=== PATIENT | female | born 1945 | race Caucasian/White ===

== ENCOUNTER → 2017-03-30 | Outpatient (CLI) | payer OTHER | LOC: M WHC 08:12 | DX: Z12.31 Encounter for screening mammogram for malignant neoplasm of breast (principal); Z80.3 Family history of malignant neoplasm of breast; Z78.0 Asymptomatic menopausal state | CPT/HCPCS: 77067 ==

== ENCOUNTER → 2017-11-02 | Outpatient (REF) | payer OTHER ==
[2017-11-02 16:54] LABS: ALBUMIN 3.8 GM/DL (3.2-5.2); ALKALINE PHOSPHATASE 59 U/L (45-117); ALT/SGPT 22 U/L (12-78); ANION GAP 5 MEQ/L (8-16); AST/SGOT 17 U/L (7-37); BILIRUBIN,TOTAL 0.3 MG/DL (0.2-1.0); BLOOD UREA NITROGEN 18 MG/DL (7-18); CALCIUM LEVEL 9.2 MG/DL (8.8-10.2); CARBON DIOXIDE LEVEL 29 MEQ/L (21-32); CHLORIDE LEVEL 108 MEQ/L (98-107); CHOLESTEROL LEVEL 235 MG/DL (<200); CHOLESTEROL RISK RATIO 2.865 (<5); CREATININE FOR GFR 0.71 MG/DL (0.55-1.30); GLOMERULAR FILTRATION RATE > 60.0 (>39); GLUCOSE, FASTING 73 MG/DL (70-100); HDL CHOLESTEROL 82 MG/DL (>40); LDL CHOLESTEROL 126 MG/DL (<100); NON-HDL-C 153 MG/DL; POTASSIUM SERUM 4.8 MEQ/L (3.5-5.1); SODIUM LEVEL 142 MEQ/L (136-145); TRIGLYCERIDES LEVEL 134 MG/DL (<150)
[2017-11-02 17:03] LABS: TOTAL 25(OH) VITAMIN D 43.9 NG/ML (30.0-100.0)
[2017-11-02 17:04] LABS: ALBUMIN/GLOBULIN RATIO 1.19 (1.00-1.93)
== END ==
LOC: M SFHCPLAZ 14:56
DX: Z00.00 Encounter for general adult medical examination without abnormal findings (principal); I10 Essential (primary) hypertension; E78.00 Pure hypercholesterolemia, unspecified; E55.9 Vitamin D deficiency, unspecified

== ENCOUNTER 2018-04-27 08:29 | Day surgery (SDC) | payer OTHER ==
[~2018-04-27] VITALS: Ht 162.6 cm; Wt 51.7 kg
[~2018-04-27 08:29] MED LIST: ACETAMINOPHEN 325 MG TAB PO PRN; ASPI1TAB PO; BSS with VANC/TOB/EPI for EYE CASES IR ONE; CYCLOPENTOLATE 2% OPHTH SOLN 2ML BTL OD ONE; DULE100A IN; HEALON DUET PRO(HEALON 10MG/ML 0.55ML & HEALON ENDOCOAT 30MG/ML 0.85ML) As Ordered ONE; LIDOCAINE 1% SDV 5 ML VIAL As Ordered ONE; LIDOCAINE 3.5 % 1ML OPHTH TOPICAL GEL OU ONE; LISI-538 PO; MIDAZOLAM INJ 2 MG/2 ML VIAL (J2250) As Ordered ONE; MOXIFLOXACIN IN BSS 0.25MG/0.25ML INTRACAMERAL INJ (OR EYE ONLY)(J2280) As Ordered ONE; OFLOXACIN 0.3 % (OCUFLOX) OPTH SOL 5ML OD ONE; PHENYLEPHRINE 2.5% OPHTH SOL 2ML OD ONE; PHENYLEPHRINE HCL 10 % OPHTH. SOL 5ML OD PRN; POVIDONE-IODINE 5% OPHTH PREP SOL 30ML As Ordered ONE; SING10TA32 PO; SUMA25TA3 PO; TRIAMCINOLONE PRES FR 40 MG/ML 1ML(TRIESENCE)(OR EYE ONLY)(J3300 PER 1MG) As Ordered ONE; TROPICAMIDE 1% OPHTH SOLN 2ML OD ONE; VITA500046 PO
[2018-04-27] MEDS ORDERED: TRIMETHOBENZAMIDE 300 MG CAP PO PRN (10:30)
[2018-04-27] MEDS ORDERED: AcetaZOLAMIDE 500 MG ER CAP PO ONE (10:30)
[2018-04-27 10:40] VITALS: BP 102/60
--- NOTE | 2018-04-27 10:43 | RO ---
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 PROCEDURE: Femtosecond laser with phacoemulsification and intraocular lens implantation with ORA and placement of a 7 mm Malyugin ring. SURGEON: Prasanna Samano MD TOBACCO SCRAP SIFTER: None. ANESTHESIA: Local IV standby. FINDINGS: Cataract right eye. COMPLICATIONS: None. DESCRIPTION OF PROCEDURE: The patient was brought to the operating room and laid in supine position. A lid speculum was placed, and patient was brought under the femtosecond laser. After the satisfactory placement of the patient interface, primary incision, secondary incision, and arcuate incisions with lens fragmentation was done without any complication per plan. The patients interface was then removed and lid speculum removed. Patient was placed under the microscope. The eye was prepped and draped in a sterile fashion for ophthalmic surgery. Lid speculum was placed. The secondary incision was opened, and EndoCoat was injected into the anterior chamber. The temporal clear corneal incision was then opened and capsulorrhexis removed, followed by hydrodissection. This was followed by phacoemulsification of the lens within the capsular bag. Cortical material was then aspirated, and Healon was injected into the capsular bag. Intraocular lens was then placed. Excess Healon was aspirated. Wound was hydrated. The lid speculum was removed, and patient was returned to the recovery room in stable condition. Addendum: After the EndoCoat was injected into the anterior chamber, it was noted that the patient's pupil had constricted. At this point, Healon was placed underneath the iris to separate the iris from the capsulorrhexis and Malyugin ring 7 mm inserted. This ring was removed after the placement of the intraocular lens. Prior to the intraocular lens placement, intraocular pressure was checked and multiple ORA calculations were reviewed and intraocular lens power chosen.
== END 2018-04-27 11:05 | disposition home or self-care (01) ==
LOC: M SDC 08:29
PROVIDERS: ATTEND Ophthalmology
DX: H26.9 Unspecified cataract (principal); H57.03 Miosis; I10 Essential (primary) hypertension; Z79.82 Long term (current) use of aspirin; Z79.899 Other long term (current) drug therapy
CPT/HCPCS: 66982; 92015; J2250; J2280; J3300

== ENCOUNTER 2018-05-18 10:24 | Day surgery (SDC) | payer OTHER ==
[~2018-05-18] VITALS: Ht 162.6 cm; Wt 52.2 kg
[~2018-05-18 10:24] MED LIST changes: -CYCLOPENTOLATE 2% OPHTH SOLN 2ML BTL OD ONE; +CYCLOPENTOLATE 2% OPHTH SOLN 2ML BTL OS ONE; -MIDAZOLAM INJ 2 MG/2 ML VIAL (J2250) As Ordered ONE; -OFLOXACIN 0.3 % (OCUFLOX) OPTH SOL 5ML OD ONE; +OFLOXACIN 0.3 % (OCUFLOX) OPTH SOL 5ML OS ONE; -PHENYLEPHRINE 2.5% OPHTH SOL 2ML OD ONE; +PHENYLEPHRINE 2.5% OPHTH SOL 2ML OS ONE; -PHENYLEPHRINE HCL 10 % OPHTH. SOL 5ML OD PRN; +PHENYLEPHRINE HCL 10 % OPHTH. SOL 5ML OS PRN; -TROPICAMIDE 1% OPHTH SOLN 2ML OD ONE; +TROPICAMIDE 1% OPHTH SOLN 2ML OS ONE
[2018-05-18] MEDS ORDERED: MIDAZOLAM INJ 2 MG/2 ML VIAL (J2250) As Ordered ONE (12:36)
[2018-05-18] MEDS ORDERED: fentaNYL 100 MCG/2 ML INJECTION (J3010) As Ordered ONE (12:37)
[2018-05-18] MEDS ORDERED: TRIAMCINOLONE PRES FR 40 MG/ML 1ML(TRIESENCE)(OR EYE ONLY)(J3300 PER 1MG) As Ordered ONE (12:56)
[2018-05-18 13:45] VITALS: BP 110/65
[2018-05-18] MEDS ORDERED: ONDANSETRON 4MG/2ML VIAL (J2405) IV PRN (13:45)
[2018-05-18] MEDS ORDERED: ACETAMINOPHEN TAB 650MG DOSE (2X325MG) PO PRN (13:45)
[2018-05-18] MEDS ORDERED: AcetaZOLAMIDE 500 MG ER CAP PO ONE (13:45)
[2018-05-18] MEDS ORDERED: TRIMETHOBENZAMIDE 300 MG CAP PO PRN (13:45)
--- NOTE | 2018-05-19 09:50 | RO ---
DATE OF PROCEDURE: 05/18/2018 PREPROCEDURE DIAGNOSIS: Cataract of left eye. POSTPROCEDURE DIAGNOSIS: Cataract of left eye. PROCEDURE: Femtosecond laser and phacoemulsification of the intraocular lens with lens implantation left eye with the help os ORA. Power was [id number], 20.5 diopter. SURGEON: Prasanna Samano MD CASTINGS TRIMMER: None. ANESTHESIA: Local IV standby. FINDINGS: Cataract of right eye. COMPLICATIONS: None. DESCRIPTION OF PROCEDURE: The patient was brought to the operating room and laid in supine position. A lid speculum was placed, and patient was brought under the femtosecond laser. After the satisfactory placement of the patient interface, primary incision, secondary incision, and arcuate incisions with lens fragmentation was done without any complication per plan. The patients interface was then removed and lid speculum removed. Patient was placed under the microscope. The eye was prepped and draped in a sterile fashion for ophthalmic surgery. Lid speculum was placed. The secondary incision was opened, and EndoCoat was injected into the anterior chamber. The temporal clear corneal incision was then opened and capsulorrhexis removed, followed by hydrodissection. This was followed by phacoemulsification of the lens within the capsular bag. Cortical material was then aspirated, and Healon was injected into the capsular bag. Intraocular lens was then placed. Excess Healon was aspirated. Wound was hydrated. The lid speculum was removed, and patient was returned to the recovery room in stable condition. ADDENDUM: After removal of the cortical material, Healon was placed in the anterior chamber and the capsular bag and pressure was checked following which multiple ORA images were taken. Calculation was reviewed and intraocular lens power chosen.
== END 2018-05-18 14:00 | disposition home or self-care (01) ==
LOC: M SDC 10:24
PROVIDERS: ATTEND Ophthalmology
DX: H25.9 Unspecified age-related cataract (principal); I10 Essential (primary) hypertension; Z79.82 Long term (current) use of aspirin; Z79.899 Other long term (current) drug therapy
CPT/HCPCS: 66984; 92015; J2250; J2280; J3010; J3300

== ENCOUNTER → 2020-01-25 | Outpatient (REF) | payer OTHER ==
[~2020-01-25] MED LIST changes: -ACETAMINOPHEN 325 MG TAB PO PRN; -ASPI1TAB PO; +ASPI81TA26 PO; -BSS with VANC/TOB/EPI for EYE CASES IR ONE; -CYCLOPENTOLATE 2% OPHTH SOLN 2ML BTL OS ONE; -HEALON DUET PRO(HEALON 10MG/ML 0.55ML & HEALON ENDOCOAT 30MG/ML 0.85ML) As Ordered ONE; -LIDOCAINE 1% SDV 5 ML VIAL As Ordered ONE; -LIDOCAINE 3.5 % 1ML OPHTH TOPICAL GEL OU ONE; -MOXIFLOXACIN IN BSS 0.25MG/0.25ML INTRACAMERAL INJ (OR EYE ONLY)(J2280) As Ordered ONE; -OFLOXACIN 0.3 % (OCUFLOX) OPTH SOL 5ML OS ONE; -PHENYLEPHRINE 2.5% OPHTH SOL 2ML OS ONE; -PHENYLEPHRINE HCL 10 % OPHTH. SOL 5ML OS PRN; -POVIDONE-IODINE 5% OPHTH PREP SOL 30ML As Ordered ONE; -TRIAMCINOLONE PRES FR 40 MG/ML 1ML(TRIESENCE)(OR EYE ONLY)(J3300 PER 1MG) As Ordered ONE; -TROPICAMIDE 1% OPHTH SOLN 2ML OS ONE
[2020-01-25 11:26] LABS: ALBUMIN 3.5 GM/DL (3.2-5.2); ALT/SGPT 17 U/L (12-78); BILIRUBIN,TOTAL 0.3 MG/DL (0.2-1.0); BLOOD UREA NITROGEN 16 MG/DL (7-18); CALCIUM LEVEL 8.9 MG/DL (8.8-10.2); CARBON DIOXIDE LEVEL 29 MEQ/L (21-32); CHLORIDE LEVEL 106 MEQ/L (98-107); CHOLESTEROL LEVEL 255 MG/DL (<200); CHOLESTEROL RISK RATIO 2.865 (<5); CREATININE FOR GFR 0.76 MG/DL (0.55-1.30); GLOMERULAR FILTRATION RATE > 60.0 (>39); GLUCOSE, FASTING 102 MG/DL (70-100); HDL CHOLESTEROL 89 MG/DL (>40); LDL CHOLESTEROL 152 MG/DL (<100); NON-HDL-C 166 MG/DL; POTASSIUM SERUM 4.8 MEQ/L (3.5-5.1); SODIUM LEVEL 139 MEQ/L (136-145); TOTAL PROTEIN 6.7 GM/DL (6.4-8.2); TRIGLYCERIDES LEVEL 71 MG/DL (<150)
== END ==
LOC: M SFHCPLAZ 08:39
PROVIDERS: ATTEND Nurse Practitioner Adult Health
DX: Z00.00 Encounter for general adult medical examination without abnormal findings (principal); I10 Essential (primary) hypertension; E78.00 Pure hypercholesterolemia, unspecified

== ENCOUNTER 2020-04-03 07:12 | Emergency (ER) | payer OTHER ==
[~2020-04-03] VITALS: Ht 162.6 cm; Wt 54.7 kg
[~2020-04-03 07:12] MED LIST changes: -LISI-538 PO; +LISI20TA33 PO
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
--- OUTSIDE RECORDS SUMMARY | 2020-04-03 07:19 | CCD ---
Author Author [facility] Organization [facility] Address Unknown Phone Unavailable Support Name Relationship Address Phone Lindsay LOPEZ Next [place] [address] KRISTYN JOHN Next Of Kin [address] [place] [address] ALVARO, KRISTYN ECON [address] [place] [address] [phone] Re-disclosure Warning The records that you are about to access may contain information from federally-assisted alcohol or drug abuse programs. If such information is present, then the following federally mandated warning applies: This information has been disclosed to you from records protected by federal confidentiality rules (42 CFR part 2). The federal rules prohibit you from making any further disclosure of this information unless further disclosure is expressly permitted by the written consent of the person to whom it pertains or as otherwise permitted by 42 CFR part 2. A general authorization for the release of medical or other information is NOT sufficient for this purpose. The Federal rules restrict any use of the information to criminally investigate or prosecute any alcohol or drug abuse patient.The records that you are about to access may contain highly sensitive health information, the redisclosure of which is protected by Article 27-F of the [facility] Public Health law. If you continue you may have access to information: Regarding HIV / AIDS; Provided by facilities licensed or operated by the [facility] Office of Mental Health; or Provided by the [facility] Office for People With Developmental Disabilities. If such information is present, then the following [facility] mandated warning applies: This information has been disclosed to you from confidential records which are protected by state law. State law prohibits you from making any further disclosure of this information without the specific written consent of the person to whom it pertains, or as otherwise permitted by law. Any unauthorized further disclosure in violation of state law may result in a fine or group home sentence or both. A general authorization for the release of medical or other information is NOT sufficient authorization for further disc losure. Encounters Encounter Providers Location Date Indications Data Source(s ) Unknown [address] [facility] [address] 02/28/2020 12:00:00 AM EST eCW1 (Formerly [facility]) Unknown [address] [facility] [address] 02/21/2020 12:00:00 AM EST eCW1 (Formerly [facility]) Outpatient [address] [facility] [address] 01/25/2020 12:00:00 AM EST eCW1 (Formerly [facility]) [facility] [address] [facility] [address] 07/10/2019 12:00:00 AM EDT eCW1 (Formerly [facility]) [facility] [address] [facility] [address] 06/05/2019 12:00:00 AM EDT eCW1 (Formerly [facility]) [facility] [address] [facility] [address] 06/02/2019 12:00:00 AM EDT eCW1 (Formerly [facility]) [facility] [address] [facility] [address] 02/28/2019 12:00:00 AM EST eCW1 (Formerly [facility]) [facility] [address] [facility] [address] 02/08/2019 12:00:00 AM EST eCW1 (Formerly [facility]) Immunizations Vaccine Date Status Description Data Source(s) influenza, recombinant, quadrIvalent,injectable, prese rvative free 01/25/2020 12:49:00 PM EST completed eCW1 ([facility]ly [facility]) influenza, recombinant, quadrIvalent,injectable, prese rvative free 01/25/2020 12:49:00 PM EST completed eCW1 ([facility]) influenza, recombinant, quadrIvalent,injectable, prese rvative free 01/25/2020 12:49:00 PM EST completed eCW1 ([facility]) Medications Medication Brand Name Start Date Product Form Dose Route Admi nistrative Instructions Pharmacy Instructions Status Indications Reaction Description Data Source(s) 875 mg 09/27/2019 12:00:00 AM EDT tablet 14 TAKE ONE TABLET BY MOUTH EVERY 12 HOURS FOR 7 DAYS TAKE ONE TABLET BY MOUTH EVERY 12 HOURS FOR 7 DAYS [facility] 30 ACTUAT fluticasone furoate 0.2 MG/ACT UAT / vilanterol 0.025 MG/ACTUAT Dry Powder Inhaler [Breo] Breo Ellipta 200-25 MCG/INH Breo Ellipta 200-25 MCG/INH 02/08/2019 12:00:00 AM EST active 1 puff eCW1 ([facility]) 30 ACTUAT fluticasone furoate 0.2 MG/ACT UAT / vilanterol 0.025 MG/ACTUAT Dry Powder Inhaler [Breo] Breo Ellipta 200-25 MCG/INH Breo Ellipta 200-25 MCG/INH 02/08/2019 12:00:00 AM EST 1.0 {puff} active Breo Ellipta 200-25 MCG/INH eCW1 ([facility]) 30 ACTUAT fluticasone furoate 0.2 MG/ACT UAT / vilanterol 0.025 MG/ACTUAT Dry Powder Inhaler [Breo] Breo Ellipta 200-25 MCG/INH Breo Ellipta 200-25 MCG/INH 02/08/2019 12:00:00 AM EST 1.0 {puff} active Breo Ellipta 200-25 MCG/INH eCW1 ([facility]) 30 ACTUAT fluticasone furoate 0.2 MG/ACT UAT / vilanterol 0.025 MG/ACTUAT Dry Powder Inhaler [Breo] Breo Ellipta 200-25 MCG/INH Breo Ellipta 200-25 MCG/INH 02/08/2019 12:00:00 AM EST 1.0 {puff} active Breo Ellipta 200-25 MCG/INH eCW1 ([facility]) Insurance Providers Payer name Policy type / Coverage type Policy ID Covered republican ID Covered republican's relationship to richardson Policy Richardson Plan Information [facility] [id number] SP U [id number] [facility] [id number] SP U [id number] ANSI-Commercial [id number] ANSI-Medicare Part B [id number] ANSI-Commercial [id number] ANSI-Commercial [id number] ANSI-Medicare Part B [id number] ANSI-Commercial [id number] [facility] [id number] SP U [id number] SELF PAY ONLY [facility] [id number] SP [id number] [facility] [id number] SP [id number] [facility] P [id number] S [id number] [facility] P [id number] S [id number] [facility] P [id number] S [id number] [facility] P [id number] S [id number] Surgeries/Procedures Procedure Description Date Indications Data Source(s) Immunization: Flublok Quadrivalent (18 years & older) 0.5mL IM (Influenza) 01/25/2020 12:00:00 AM EST eCW1 (Formerly [facility]) Results ID Date Data Source LIPID PANEL (CARDIAC RISK) 01/25/2020 12:00:00 AM EST eCW1 ( [facility]) Name Value Range Interpretation Code Description Data Patricia rce(s) Supporting Document(s) Cholesterol [Moles/volume] in Serum or Plasma 255 <200 CHOLESTEROL LEVEL eCW1 ([facility]) Cholesterol in LDL [Mass/volume] in Serum or Plasma by calculation 152 <100 LDL CHOLESTEROL eCW1 ([facility]) Triglyceride [Mass/volume] in Serum or Plasma by calculation 71 <150 TRIGLYCERIDES LEVEL eCW1 ([facility]) Cholesterol in HDL [Moles/volume] in Serum or Plasma 89 >40 HDL CHOLESTEROL eCW1 ([facility]) 166 NON-HDL-C eCW1 ([facility]) 2.865 <5 CHOLESTEROL RISK RATIO eCW1 ([facility]) ID Date Data Source Comprehensive Metabolic Profile (CMP) 01/25/2020 12:00:00 AM EST eCW1 ([facility]) Name Value Range Interpretation Code Description Data Patricia rce(s) Supporting Document(s) 16 7-18 BLOOD UREA NITROGEN eCW1 ([facility]) 0.76 0.55-1.30 CREATININE FOR GFR eCW1 ([facility]) 102 70-100 GLUCOSE, FASTING eCW1 ([facility]) 139 136-145 SODIUM LEVEL eCW1 ([facility]) > 60.0 >39 GLOMERULAR FILTRATION RATE eCW 1 ([facility]) 106 98-107 CHLORIDE LEVEL eCW1 ([facility]) 4.8 3.5-5.1 POTASSIUM SERUM eCW1 ([facility]) 8.9 8.8-10.2 CALCIUM LEVEL eCW1 ([facility]) 17 12-78 ALT/SGPT eCW1 ([facility]) 29 21-32 CARBON DIOXIDE LEVEL eCW1 (Count includes the [facility]) 11 7-37 AST/SGOT eCW1 ([facility]) 6.7 6.4-8.2 TOTAL PROTEIN eCW1 ([facility]) 0.3 0.2-1.0 BILIRUBIN,TOTAL eCW1 ([facility]) 3.5 3.2-5.2 ALBUMIN eCW1 ([facility]) 56 45-117 ALKALINE PHOSPHATASE eCW1 (Count includes the [facility]) 1.1 1.2-2.2 ALBUMIN/GLOBULIN RATIO eCW1 ([facility]) Procedure Social History Code Duration Value Status Description Data Source(s ) Smoking 01/25/2020 12:00:00 AM EST Never Smoker completed Never S moker eCW1 ([facility]) Smoking 01/25/2020 12:00:00 AM EST Never Smoker completed Never S moker eCW1 ([facility]) Smoking 01/25/2020 12:00:00 AM EST Never Smoker completed Never S moker eCW1 ([facility]) Vital Signs ID Date Data Source UNK Name Value Range Interpretation Code Description Data Source(s) Diastolic blood pressure 76 mm[Hg] 76 mm[Hg] eCW1 ([facility]) Systolic blood pressure 126 mm[Hg] 126 mm[Hg] e CW1 ([facility]) Body temperature 98.6 [degF] 98.6 [degF] eCW1 ( [facility]) Respiratory rate 18 /min 18 /min eCW1 ([facility]) Heart rate 74 /min 74 /min eCW1 ([facility]) Body mass index (BMI) [Ratio] 21.08 kg/m2 21.08 kg/m2 eCW1 ([facility]) Body height 63 [in_i] 63 [in_i] eCW1 ([facility]) Body weight 119 [lb_av] 119 [lb_av] eCW1 ([facility]) Patient Treatment Plan of Care Planned Activity Planned Date Details Description Data Source (s) 30 ACTUAT fluticasone furoate 0.2 MG/ACT UAT / vilanterol 0.025 MG/ACTUAT Dry Powder Inhaler [Breo] 02/08/2019 12:00:00 AM EST eCW1 ([facility]) 30 ACTUAT fluticasone furoate 0.2 MG/ACT UAT / vilanterol 0.025 MG/ACTUAT Dry Powder Inhaler [Breo] 02/08/2019 12:00:00 AM EST eCW1 ([facility]) 30 ACTUAT fluticasone furoate 0.2 MG/ACT UAT / vilanterol 0.025 MG/ACTUAT Dry Powder Inhaler [Breo] 02/08/2019 12:00:00 AM EST eCW1 ([facility])
--- OUTSIDE RECORDS SUMMARY | 2020-04-03 07:19 | CCD ---
Author Author [facility] Organization [facility] Address Unknown Phone Unavailable Care Team Providers Care Two Way Radio Installer Name Role Phone Shea Quiroz Unavailable PROBLEMS Type Condition ICD9-CM Code [id number] Code Onset Dates Condition S tatus SNOMED Code Notes Problem History of atypical migraine Z86.69 Active 161 118968 She only very occasionally takes sumatriptan for migraines. Problem Primary osteoarthritis, unspecified site M19.91 Active 712035033 She takes Tylenol for occasional arthralgias. Problem Mixed hyperlipidemia E78.2 Active 421548459 Problem Mild intermittent asthma without complication J45. 20 Active 812778635 She has not had a flare in some time. Syliwa mac only takes Dulera as needed. Problem Hypercholesterolemia E78.0 Active 62871142 Sylwia mac has a history of elevated cholesterol with a very favorable HDL, and her LDL meets primary prevention targets as of October 2017. Problem Essential hypertension I10 Active 95100134 Her blood pressures optimally controlled on her current lisinopril antihypertensive therapy. Problem Vitamin D deficiency E55.9 Active 89169353 ALLERGIES No Known Allergies ENCOUNTERS from 1945 to 2020-02-29 Encounter Location Date Provider Diagnosis [address] [address] Feb, Shea Quiroz IMMUNIZATIONS Vaccine Route Administration Date Status Influenza (18 yrs & older) Flublok IM Intramuscular Jan 25, 2020 Administered Influenza (18 yrs & older) Flublok IM Intramuscular Jan 05, 2019 Administered Influenza (18 yrs & older) Flublok IM Intramuscular April 22 19 Administered Zoster 50mcg/0.5mL (Shingrix) Unknown Oct 11, [...] Notes Total Score: 2 Interpretation: Alcohol Education Yazidism: Question Answer Notes Yazidism 21 Hinduism Sexual Hx: Question Answer Notes Had sex [...] Information RESULTS No Results REASON FOR VISIT Breo MEDICAL (GENERAL) HISTORY Type Description Date Medical [...] Provider Name:Shea Gregg Quiroz, 08:00:00 AM, [address] [place], [address], Insurance Providers Payer Name Payer Address Payer Phone Insured Name Patient Relati onship to Insured Coverage Start Date Coverage End Date [facility] [address] [facility] [employer] [phone] ALEXUS STRAUSS self
--- OUTSIDE RECORDS SUMMARY | 2020-04-03 07:19 | CCD ---
Author Author [facility] Organization [facility] Address Unknown Phone Unavailable Care Team Providers Care Financial Recording Clerk Name Role Phone Shea Quiroz Unavailable PROBLEMS Type Condition ICD9-CM Code FZA21-HN Code Onset Dates Condition S tatus SNOMED Code Notes Problem History of atypical migraine Z86.69 Active 161 [id number] She only very occasionally takes sumatriptan for migraines. Problem Primary osteoarthritis, unspecified site M19.91 Active [id number] She takes Tylenol for occasional arthralgias. Problem Mixed hyperlipidemia E78.2 Active [id number] Problem Mild intermittent asthma without complication J45. 20 Active 210657869 She has not had a flare in some time. Sylwia mac only takes Dulera as needed. Problem Hypercholesterolemia E78.0 Active 10282090 Sylwia mac has a history of elevated cholesterol with a very favorable HDL, and her LDL meets primary prevention targets as of October 2017. Problem Essential hypertension I10 Active 58424483 Her blood pressures optimally controlled on her current lisinopril antihypertensive therapy. Problem Vitamin D deficiency E55.9 Active 86144650 ALLERGIES No Known Allergies ENCOUNTERS from 1945 to 2020-01-31 Encounter Location Date Provider Diagnosis [address] [place] [address] Jan, Shea Quiroz Annual physical exam Z00.00 ; Vitamin D deficiency E55.9 ; Essential hypertension I10 ; History of atypical migraine Z86.69 ; Mild intermittent asthma without complication J45.20 ; Immunization due Z23 and Hypercholesterolemia E78.0 IMMUNIZATIONS Vaccine Route Administration Date Status Influenza [...] Notes Total Score: 2 Interpretation: Alcohol Education Sikh: Question Answer Notes Sikh 21 Anabaptist Sexual Hx: Question Answer Notes Had sex [...] REASON FOR REFERRAL No Information VITAL SIGNS Weight 119 lbs Jan, Height 63 in Jan, BMI 21.08 kg/m2 Jan, Heart Rate 74 /min Jan, Respiratory Rate 18 /min Jan, Temperature 98.6 degrees Fahrenheit Jan, Oximetry 99% Jan, Blood pressure systolic 126 mm Hg Jan, Blood pressure diastolic 76 mm Hg Jan, MEDICATIONS Medication SIG (Take, Route, Frequency, Duration) Notes Start Da te End Date Status Vitamin D 2000 UNIT 1 tablet Orally Once a day Active Breo Ellipta 200-25 MCG/INH 1 puff Inhalation Once a day for 90 day(s) Jan, Active Montelukast Sodium 10MG 1 tab orally Daily for 90 days Active Tylenol Extra Strength 500 MG 1 tab Orally four times daily as needed Active Aspirin 81 MG 1 tablet Orally Once a day for 30 day(s) Active Sumatriptan Succinate 25 mg 1 tab orally once at the o nset of headache, may repeat once after 2 hours for 90 days Active Lisinopril 20 MG 1 tablet Orally Once a day for 90 days Active PROCEDURES from 1943 to 2020-01-31 Procedure Date Ordered Result Body Site Immunization: Flublok Quadrivalent (18 years & older) 0.5mL IM (Influenza) 2020-01-25 N/A RESULTS Component Value Reference Range Comprehensive Metabolic Profile (CMP) Reviewed date:01/28/2020 09:13:14 Interpretation:Normal Performing Lab:[facility] [address] [facility] [address] , ,[facility]01 GLUCOSE, FASTING 102 70-100 BLOOD UREA NITROGEN 16 7-18 CREATININE FOR GFR 0.76 0.55-1.30 GLOMERULAR FILTRATION RATE > 60.0 >39 SODIUM LEVEL 139 136-145 POTASSIUM SERUM 4.8 3.5-5.1 CHLORIDE LEVEL 106 98-107 CARBON DIOXIDE LEVEL 29 21-32 CALCIUM LEVEL 8.9 8.8-10.2 AST/SGOT 11 7-37 ALT/SGPT 17 12-78 ALKALINE PHOSPHATASE 56 45-117 BILIRUBIN,TOTAL 0.3 0.2-1.0 TOTAL PROTEIN 6.7 6.4-8.2 ALBUMIN 3.5 3.2-5.2 ALBUMIN/GLOBULIN RATIO 1.1 1.2-2.2 LIPID PANEL (CARDIAC RISK) Reviewed date:01/28/2020 09:13:42 Interpretation: Performing Lab:[facility] [address] [facility] [address] , ,[facility]01 TRIGLYCERIDES LEVEL 71 <150 CHOLESTEROL LEVEL 255 <200 HDL CHOLESTEROL 89 >40 LDL CHOLESTEROL 152 <100 NON-HDL-C 166 CHOLESTEROL RISK RATIO 2.865 <5 REASON FOR VISIT 1 year annual well exam MEDICAL (GENERAL) HISTORY Type Description Date Medical [...] No Information FUNCTIONAL STATUS No Information ASSESSMENTS Encounter Date Diagnosis Assessment Notes Treatment Notes Treatm ent Clinical Notes Jan, Annual physical exam (ICD-10 - Z00.00) age appropriate anticipatory guidance given, per USPSTF recommendations; immunizations up to date. discussed plans for implementing improvement in identified areas agrees to labs today. Jan, Vitamin D deficiency (ICD-10 - E55.9) Remains on vitamin D 2000 units daily Jan, Essential hypertension (ICD-10 - I10) Blood pressure meets goal on lisinopril 20 mg daily we'll continue with this medication, patient is also on aspirin 81 mg daily Discussed that if she has any lightheadedness to please call the office may need to cut the lisinopril in half Jan, History of atypical migraine (ICD-10 - Z86.69) Uses sumatriptan on a when necessary basis has been effective to date Jan, Mild intermittent asthma without complication (I CD-10 - J45.20) insurance covering breo doing well Jan, Immunization due (ICD-10 - Z23) flu vaccine today Jan, Hypercholesterolemia (ICD-10 - E78.0) diet controlled She has a history of elevated cholesterol with a very favorable HDL, and her LDL meets primary prevention targets Jan, Other wants to use ot c lidoderm with aspercream or voltarenfor her right shoulder. PLAN OF TREATMENT Treatment Notes Assessment Notes Clinical Notes Annual physical exam age appropriate ant icipatory guidance given, per USPSTF recommendations; immunizations up to date. discussed plans for implementing improvement in identified areasagrees to labs today. Vitamin D deficiency Remains on vitamin D 2000 units daily Essential hypertension Blood pressure me ets goal on lisinopril 20 mg daily we'll continue with this medication, patient is also on aspirin 81 mg dailyDiscussed that if she has any lightheadedness to please call the office may need to cut the lisinopril in half History of atypical migraine Uses sumatr iptan on a when necessary basis has been effective to date Mild intermittent asthma without complication insurance covering nanoo doing well Immunization due flu vaccine today Hypercholesterolemia diet controlled She has a history of elevated cholesterol with a very favorable HDL, and her LDL meets primary prevention targets Next Appt Details Shea 1 year annual well exam has insur nargise Reason: Provider Name:Shea Escobedo Jyothijose, 08:00:00 AM, [address] [place], [address], Insurance Providers Payer Name Payer Address Payer Phone Insured Name Patient Relati onship to Insured Coverage Start Date Coverage End Date [facility] [address] [facility] [phone] ALEXUS STRAUSS self
[2020-04-03] MEDS ORDERED: BREO1INH3 (07:27)
--- NOTE | 2020-04-03 07:56 | REP ---
INDICATION: trauma COMPARISON: None. TECHNIQUE: AP, lateral, bilateral oblique views of the right elbow. FINDINGS: Evaluation is limited by osteopenia, degenerative changes and suspected old injuries. An acute transverse fracture involving the supracondylar distal humerus is suspected along with overlying soft tissue swelling and effusion. Further possible acute fracture involving the radial head cannot be excluded as well. IMPRESSION: Acute transverse fracture through the supracondylar region of the distal humerus with overlying swelling and effusion. Cannot exclude acute radial head fracture. <Electronically signed by Austin Wing > 04/03/20 0270
--- OUTSIDE RECORDS SUMMARY | 2020-04-03 08:05 | CCD ---
Author Author [facility] Organization [facility] Address Unknown Phone Unavailable Support Name Relationship Address Phone Lindsay LOPEZ [place] [address] KRISTYN JOHN Next Of Kin [address] [place] [address] ALVARO, KRISTYN ECON [address] [place] [address] [phone] Re-disclosure Warning The records that you are [...] is protected by Article 27-F of the [facility] Public Health law. If you continue you may have access to information: Regarding HIV / AIDS; Provided by facilities licensed or operated by the [facility] Office of Mental Health; or Provided by the [facility] Office for People With Developmental Disabilities. If such information is present, then the following [facility] mandated warning applies: This information has been [...] law may result in a fine or usp sentence or both. A general authorization for the release of medical or other information is NOT sufficient authorization for further disc losure. Encounters Encounter Providers Location Date Indications Data Source(s ) [place] [address] [facility] [address] 02/28/2020 12:00:00 AM EST eCW1 ([facility]) [place] [address] [facility] [address] 02/21/2020 12:00:00 AM EST eCW1 ([facility]) Outpatient [address] [facility] [address] 01/25/2020 12:00:00 AM EST eCW1 ([facility]) [facility] [address] [facility] [address] 07/10/2019 12:00:00 AM EDT eCW1 ([facility]) [facility] [address] [facility] [address] 06/05/2019 12:00:00 AM EDT eCW1 ([facility]) [facility] [address] [facility] [address] 06/02/2019 12:00:00 AM EDT eCW1 ([facility]) [facility] [address] [facility] [address] 02/28/2019 12:00:00 AM EST eCW1 ([facility]) [facility] [address] [facility] [address] 02/08/2019 12:00:00 AM EST eCW1 ([facility]) Immunizations Vaccine Date Status Description Data Source(s) influenza, recombinant, quadrIvalent,injectable, prese rvative free 01/25/2020 12:49:00 PM EST completed eCW1 ([facility]) influenza, recombinant, quadrIvalent,injectable, prese rvative free 01/25/2020 12:49:00 PM EST completed eCW1 ([facility]) influenza, recombinant, quadrIvalent,injectable, prese rvative free 01/25/2020 12:49:00 PM EST completed eCW1 ([facility]) Medications Medication Brand Name Start Date Product [...] 12:00:00 AM EST active 1 puff eCW1 ([facility]) 30 ACTUAT fluticasone furoate 0.2 MG/ACT UAT / vilanterol 0.025 MG/ACTUAT Dry Powder Inhaler [Breo] Breo Ellipta 200-25 MCG/INH Breo Ellipta 200-25 MCG/INH 02/08/2019 12:00:00 AM EST 1.0 {puff} active Breo Ellipta 200-25 MCG/INH eCW1 ([facility]) 30 ACTUAT fluticasone furoate 0.2 MG/ACT UAT / vilanterol 0.025 MG/ACTUAT Dry Powder Inhaler [Breo] Breo Ellipta 200-25 MCG/INH Breo Ellipta 200-25 MCG/INH 02/08/2019 12:00:00 AM EST 1.0 {puff} active Breo Ellipta 200-25 MCG/INH eCW1 ([facility]) 30 ACTUAT fluticasone furoate 0.2 MG/ACT UAT / vilanterol 0.025 MG/ACTUAT Dry Powder Inhaler [Breo] Breo Ellipta 200-25 MCG/INH Breo Ellipta 200-25 MCG/INH 02/08/2019 12:00:00 AM EST 1.0 {puff} active Breo Ellipta 200-25 MCG/INH eCW1 ([facility]) Insurance Providers Payer name Policy type / Coverage type Policy ID Covered libertarian ID Covered libertarian's relationship to richardson Policy Richardson Plan Information [facility] [id number] SP U [id number] [facility] [id number] SP U [id number] ANSI-Commercial [id number] ANSI-Medicare Part B [id number] ANSI-Commercial [id number] ANSI-Commercial [id number] ANSI-Medicare Part B [id number] ANSI-Commercial [id number] [facility] [id number] SP U [id number] SELF PAY ONLY [facility] [id number] SP [id number] [facility] [id number] SP [id number] [facility] P [id number] S [id number] [facility] P [id number] S [id number] [facility] P [id number] S [id number] [facility] P [id number] S [id number] Surgeries/Procedures Procedure Description Date Indications Data Source(s) Immunization: Flublok Quadrivalent (18 years & older) 0.5mL IM (Influenza) 01/25/2020 12:00:00 AM EST eCW1 ([facility]) Results ID Date Data Source LIPID PANEL (CARDIAC RISK) 01/25/2020 12:00:00 AM EST eCW1 ( [facility]) Name Value Range Interpretation Code Description Data Patricia rce(s) Supporting Document(s) Cholesterol [Moles/volume] in Serum or Plasma 255 <200 CHOLESTEROL LEVEL eCW1 ([facility]) Cholesterol in LDL [Mass/volume] in Serum or Plasma by calculation 152 <100 LDL CHOLESTEROL eCW1 ([facility]) Triglyceride [Mass/volume] in Serum or Plasma by calculation 71 <150 TRIGLYCERIDES LEVEL eCW1 ([facility]) Cholesterol in HDL [Moles/volume] in Serum or Plasma 89 >40 HDL CHOLESTEROL eCW1 ([facility]) 166 NON-HDL-C eCW1 ([facility]) 2.865 <5 CHOLESTEROL RISK RATIO eCW1 ([facility]) ID Date Data Source Comprehensive Metabolic Profile (CMP) 01/25/2020 12:00:00 AM EST eCW1 ([facility]) Name Value Range Interpretation Code Description Data Patricia rce(s) Supporting Document(s) 16 7-18 BLOOD UREA NITROGEN eCW1 ([facility]) 0.76 0.55-1.30 CREATININE FOR GFR eCW1 ([facility]) 102 70-100 GLUCOSE, FASTING eCW1 ([facility]) 139 136-145 SODIUM LEVEL eCW1 ([facility]) > 60.0 >39 GLOMERULAR FILTRATION RATE eCW 1 ([facility]) 106 98-107 CHLORIDE LEVEL eCW1 ([facility]) 4.8 3.5-5.1 POTASSIUM SERUM eCW1 ([facility]) 8.9 8.8-10.2 CALCIUM LEVEL eCW1 ([facility]) 17 12-78 ALT/SGPT eCW1 ([facility]) 29 21-32 CARBON DIOXIDE LEVEL eCW1 ([facility]) 11 7-37 AST/SGOT eCW1 ([facility]) 6.7 6.4-8.2 TOTAL PROTEIN eCW1 ([facility]) 0.3 0.2-1.0 BILIRUBIN,TOTAL eCW1 ([facility]) 3.5 3.2-5.2 ALBUMIN eCW1 ([facility]) 56 45-117 ALKALINE PHOSPHATASE eCW1 ([facility]) 1.1 1.2-2.2 ALBUMIN/GLOBULIN RATIO eCW1 ([facility]) Procedure Social History Code Duration Value Status Description Data Source(s ) Smoking 01/25/2020 12:00:00 AM EST Never Smoker completed Never S moker eCW1 ([facility]) Smoking 01/25/2020 12:00:00 AM EST Never Smoker completed Never S moker eCW1 ([facility]) Smoking 01/25/2020 12:00:00 AM EST Never Smoker completed Never S moker eCW1 ([facility]) Vital Signs ID Date Data Source UNK Name Value Range Interpretation Code Description Data Source(s) Diastolic blood pressure 76 mm[Hg] 76 mm[Hg] eCW1 ([facility]) Systolic blood pressure 126 mm[Hg] 126 mm[Hg] e CW1 ([facility]) Body temperature 98.6 [degF] 98.6 [degF] eCW1 ( [facility]) Respiratory rate 18 /min 18 /min eCW1 ([facility]) Heart rate 74 /min 74 /min eCW1 ([facility]) Body mass index (BMI) [Ratio] 21.08 kg/m2 21.08 kg/m2 eCW1 ([facility]) Body height 63 [in_i] 63 [in_i] eCW1 ([facility]) Body weight 119 [lb_av] 119 [lb_av] eCW1 ([facility]) Patient Treatment Plan of Care Planned Activity Planned Date Details Description Data Source (s) 30 ACTUAT fluticasone furoate 0.2 MG/ACT UAT / vilanterol 0.025 MG/ACTUAT Dry Powder Inhaler [Breo] 02/08/2019 12:00:00 AM EST eCW1 ([facility]) 30 ACTUAT fluticasone furoate 0.2 MG/ACT UAT / vilanterol 0.025 MG/ACTUAT Dry Powder Inhaler [Breo] 02/08/2019 12:00:00 AM EST eCW1 ([facility]) 30 ACTUAT fluticasone furoate 0.2 MG/ACT UAT / vilanterol 0.025 MG/ACTUAT Dry Powder Inhaler [Breo] 02/08/2019 12:00:00 AM EST eCW1 ([facility])
[2020-04-03 12:40] VITALS: BP 151/83
[2020-04-03] MEDS ORDERED: ULTR50TA8 PO (12:45)
== END 2020-04-03 13:00 | disposition home or self-care (01) ==
LOC: M ED 07:12
DX: S42.415A Nondisplaced simple supracondylar fracture without intercondylar fracture of left humerus, initial encounter for closed fracture (principal); W01.0XXA Fall on same level from slipping, tripping and stumbling without subsequent striking against object, initial encounter; Y92.019 Unspecified place in single-family (private) house as the place of occurrence of the external cause; Y93.9 Activity, unspecified; Y99.9 Unspecified external cause status; I10 Essential (primary) hypertension; E78.5 Hyperlipidemia, unspecified; F17.200 Nicotine dependence, unspecified, uncomplicated; Z79.82 Long term (current) use of aspirin; Z79.899 Other long term (current) drug therapy

== ENCOUNTER → 2022-03-05 | Outpatient (CLI) | payer MEDICARE, BC ==
[~2022-03-05] MED LIST changes: +BREO1INH3; +ULTR50TA8 PO
[2022-03-05 10:27] LABS: ALBUMIN 3.7 G/DL (3.2-5.2); ALKALINE PHOSPHATASE 57 U/L (46-116); ALT/SGPT 15 U/L (7.0-40); AST/SGOT 20 U/L (<34); BILIRUBIN,TOTAL 0.4 MG/DL (0.3-1.2); BLOOD UREA NITROGEN 28 MG/DL (9-23); CALCIUM LEVEL 9.5 MG/DL (8.3-10.6); CARBON DIOXIDE LEVEL 26 MMOL/L (20-31); CHLORIDE LEVEL 104 MMOL/L (98-107); CHOLESTEROL LEVEL 250 MG/DL (<200); CHOLESTEROL RISK RATIO 3.54 (<5); CREATININE FOR GFR 0.91 MG/DL (0.55-1.30); GLOMERULAR FILTRATION RATE > 60.0 (>39); GLUCOSE, FASTING 85 MG/DL (74-106); HDL CHOLESTEROL 70.5 MG/DL (>40); LDL CHOLESTEROL 165.3 MG/DL (<100); NON-HDL-C 180 MG/DL; POTASSIUM SERUM 4.8 MMOL/L (3.5-5.1); SODIUM LEVEL 138 MMOL/L (136-145); TOTAL PROTEIN 6.5 G/DL (5.7-8.2); TRIGLYCERIDES LEVEL 71 MG/DL (<150)
== END ==
LOC: M LAB 09:11
PROVIDERS: ATTEND Nurse Practitioner Adult Health
DX: Z00.00 Encounter for general adult medical examination without abnormal findings (principal); E55.9 Vitamin D deficiency, unspecified; I10 Essential (primary) hypertension; E78.00 Pure hypercholesterolemia, unspecified; Z79.899 Other long term (current) drug therapy

== ENCOUNTER → 2023-02-04 | Outpatient (CLI) | payer BC, MEDICARE ==
[~2023-02-04] MED LIST changes: -DULE100A IN; +MOME13HF8 IN; +MONT-5 PO; -SING10TA32 PO
[2023-02-04 10:39] LABS: ALBUMIN 3.9 G/DL (3.2-5.2); ALKALINE PHOSPHATASE 57 U/L (46-116); ALT/SGPT 15 U/L (7.0-40); AST/SGOT 18 U/L (<34); BILIRUBIN,TOTAL 0.3 MG/DL (0.3-1.2); BLOOD UREA NITROGEN 24 MG/DL (9-23); CALCIUM LEVEL 9.5 MG/DL (8.3-10.6); CARBON DIOXIDE LEVEL 26 MMOL/L (20-31); CHLORIDE LEVEL 107 MMOL/L (98-107); CHOLESTEROL LEVEL 284 MG/DL (<200); CREATININE FOR GFR 0.84 MG/DL (0.55-1.30); GLOMERULAR FILTRATION RATE > 60.0 (>39); GLUCOSE, FASTING 94 MG/DL (74-106); HDL CHOLESTEROL 78.8 MG/DL (>40); LDL CHOLESTEROL 189.2 MG/DL (<100); NON-HDL-C 205.2 MG/DL; POTASSIUM SERUM 4.6 MMOL/L (3.5-5.1); SODIUM LEVEL 141 MMOL/L (136-145); TOTAL PROTEIN 6.9 G/DL (5.7-8.2); TRIGLYCERIDES LEVEL 80 MG/DL (<150)
[2023-02-04 10:43] LABS: TOTAL 25(OH) VITAMIN D 81.9 NG/ML (20.0-100.0)
== END ==
LOC: M PLALAB 08:52
PROVIDERS: ATTEND Nurse Practitioner Adult Health
DX: I10 Essential (primary) hypertension (principal); E55.9 Vitamin D deficiency, unspecified; E78.2 Mixed hyperlipidemia

== ENCOUNTER → 2023-02-13 | Outpatient (REF) | payer MEDICARE, BC | LOC: M LAB REF 17:43 | PROVIDERS: ATTEND Physician Assistant Medical | DX: B34.9 Viral infection, unspecified (principal) ==

== ENCOUNTER → 2024-03-07 | Outpatient (CLI) | payer MEDICARE ==
[2024-03-07 15:05] LABS: ALBUMIN 3.8 G/DL (3.2-5.2); ALKALINE PHOSPHATASE 54 U/L (35-104); ALT/SGPT 14 U/L (7.0-40); AST/SGOT 18 U/L (<34); BILIRUBIN,TOTAL 0.5 MG/DL (0.3-1.2); BLOOD UREA NITROGEN 19 MG/DL (9-23); CARBON DIOXIDE LEVEL 26 MMOL/L (20-31); CHLORIDE LEVEL 106 MMOL/L (98-107); CREATININE FOR GFR 0.87 MG/DL (0.55-1.30); GLOMERULAR FILTRATION RATE > 60.0 (>32); GLUCOSE, FASTING 90 MG/DL (74-106); SODIUM LEVEL 139 MMOL/L (136-145); TOTAL PROTEIN 6.7 G/DL (5.7-8.2)
== END ==
LOC: M PLALAB 09:46
PROVIDERS: ATTEND Nurse Practitioner Adult Health
DX: I10 Essential (primary) hypertension (principal)

== ENCOUNTER 2024-04-18 09:13 | Emergency (ER) | payer MEDICARE, OTHER ==
[~2024-04-18] VITALS: Ht 162.6 cm; Wt 55.4 kg
[2024-04-18 11:57] LABS: BASO % 0.4 % (0.0-1.0); EOS # 0.2 10^3/uL (0.0-0.5); EOS % 2.5 % (0.0-3.0); HEMOGLOBIN 12.3 g/dl (12.0-15.5); LYMPH % 24.7 % (24.0-44.0); MEAN CORPUSCULAR HEMOGLOBIN 30.5 pg (27.0-33.0); MEAN CORPUSCULAR HGB CONC 32.4 g/dl (32.0-36.5); MEAN CORPUSCULAR VOLUME 94.3 fl (80.0-96.0); MONO # 0.4 10^3/uL (0.0-0.8); MONO % 4.4 % (2.0-8.0); NEUTROPHILS # 5.4 10^3/uL (1.5-8.5); NEUTROPHILS % 67.7 % (36.0-66.0); PLATELET COUNT, AUTOMATED 237 10^3/uL (150-450); RED BLOOD COUNT 4.03 10^6/uL (4.00-5.40); WHITE BLOOD COUNT 7.9 10^3/uL (4.0-10.0)
[2024-04-18 12:10] LABS: INR 0.94; PARTIAL THROMBOPLASTIN TIME 22.3 SECONDS (24.8-34.2); PROTHROMBIN TIME 12.9 SECONDS (12.5-14.5)
[2024-04-18 12:16] VITALS: BP 109/55; TEMP 98.2; O2SAT 99
== END 2024-04-18 14:10 | disposition left against medical advice (07) ==
LOC: M ED 09:13
DX: Z53.21 Procedure and treatment not carried out due to patient leaving prior to being seen by health care provider (principal)

== ENCOUNTER → 2024-04-20 | Outpatient (CLI) | payer MEDICARE ==
[2024-04-20 14:03] LABS: APPEARANCE, URINE CLEAR (CLEAR); BACTERIA, URINE AUTO NEGATIVE (NEGATIVE); BILIRUBIN, URINE AUTO NEGATIVE (NEGATIVE); BLOOD, URINE BLOOD 1+ (NEGATIVE); COLOR, URINE STRAW (YELLOW); GLUCOSE, URINE (UA) AUTO NEGATIVE (NEGATIVE); KETONE, URINE AUTO NEGATIVE (NEGATIVE); LEUKOCYTE ESTERASE, URINE AUTO NEGATIVE (NEGATIVE); NITRITE, URINE AUTO NEGATIVE (NEGATIVE); PROTEIN, URINE AUTO NEGATIVE (NEGATIVE); RBC, URINE AUTO 0 /HPF (0-3); SPECIFIC GRAVITY URINE AUTO 1.004 (1.002-1.035); SQUAMOUS EPITHELIAL CELL UR AU 0 /HPF (0-6); UROBILINOGEN, URINE AUTO 0.2 mg/dL (0.0-2.0); WBC, URINE AUTO 0 /HPF (0-3)
== END ==
LOC: M PLALAB 09:49
PROVIDERS: ATTEND Nurse Practitioner Adult Health
DX: R10.2 Pelvic and perineal pain (principal); R31.9 Hematuria, unspecified; K59.00 Constipation, unspecified